=== PATIENT | female | born 1950 | race Caucasian/White ===

== ENCOUNTER 2016-04-14 09:28 | Outpatient (RCR) | payer MEDICARE, MEDICAID ==
[~2016-04-14 09:28] MED LIST: AC325T PO; AC500T PO; ALBU2.5V4 NEB; ALBU8.5H2 IH; ASP325T PO; BACL10TA PO; BECL8.7A5 TOP; BUDE6HFA IH; CARV3.122 PO; CETI10CA PO; CLD600T PO; CYAN100T PO; CYAN25005 PO; DCS100C PO; DESV50TA PO; DICL100G13 TOP; DICL75TA2 PO; DM H PO; DULO60CA6 PO; ENAL10TA PO; FAMO20TA5 PO; FENT1PAT2 TD; FLUO40CA PO; FLUT16SP22 NS; FURO40TA4 PO; GABA600T PO; GBPN300C PO; HC2.5C30 EXT; HYDR-34 PO; HYDR-3816 PO; IBUP800T26 PO; LACT1CAP39 PO; LEVO500P5 IV; LOPE2CAP PO; LORA0.5T PO; LVF500T GT; MAGN27TA4 PO; NAPR220C11 PO; NF-TRA/ACE PO; NYST1POW15 TOP; ONDA-43 PO; ONDA4TAB2 PO; POTA10CA43 PO; Pantoprazole Sodium PO; SERT25TA PO; SIMV5TAB6 PO; Simethicone PO; TAMO20TA2 PO; TIZA2TAB3 PO; TIZA4TAB55 PO; VENL37.563 PO; VENL75CA55 PO; [UNRECOGNIZED DRUG - CODE] PO; [UNRECOGNIZED DRUG - OTHER] IV; prostat PO
--- OUTSIDE RECORDS SUMMARY | 2016-04-14 09:31 | XMS REPORT | Continuity of Care Document ---
Author Author [facility] Organization [facility] Address Unknown Phone Unavailable Care Team Providers Care Provider Scribe Name Role Phone Ari Valera PCP [phone] Source Comments Some departments are not documenting in the electronic medical record. If you do not see the information that you expected, contact Release of Information in the Health Information Management department at [phone] for further assistance in locating additional records.[facility] Active Allergies and Adverse Reactions Allergen Noted Date Severity Reactions Comments Codeine 09/13/2011 HALLUCINATIONS, SEE Pt states gets hostile COMMENTS Pcn 09/13/2011 ANAPHYLAXIS Sulfa (Sulfonamide 09/13/2011 RASH Antibiotics) Current Medications Prescription Sig. Disp. Refills Start End Date Status Date tiZANidine (ZANAFLEX) 4 Take 4 mg by mouth at Active mg tablet bedtime daily. loratadine (CLARITIN) 10 Take 10 mg by mouth Active mg tablet daily. gabapentin (NEURONTIN) Take 300 mg by mouth at Active 300 mg capsule bedtime daily. carvedilol (COREG) 3.125 Take 3.125 mg by mouth Active mg tablet twice daily with meals. famotidine (PEPCID) 20 mg Take 20 mg by mouth twice Active tablet daily. simvastatin (ZOCOR) 5 mg Take 5 mg by mouth daily Active tablet with breakfast. aspirin 325 mg tablet Take 325 mg by mouth Active daily with breakfast. enalapril (VASOTEC) 10 mg Take 10 mg by mouth daily Active tablet with breakfast. furosemide (LASIX) 40 mg Take 40 mg by mouth Active tablet daily. potassium chloride SR Take 10 mEq by mouth Active (K-DUR) 10 mEq tablet daily. DULoxetine DR (CYMBALTA) Take 60 mg by mouth Active 60 mg capsule daily. FLUoxetine(+) (PROZAC) 40 Take 40 mg by mouth Active mg capsule daily. fentaNYL (DURAGESIC) 25 Apply 1 Patch to top of Active mcg/hr patch skin as directed every 72 hours. polyethylene glycol 3350 Take 17 g by mouth every Active (GLYCOLAX; MIRALAX) 17 48 hours. gram/dose powder ibuprofen (MOTRIN) 200 mg Take 600 mg by mouth Active tablet every 8 hours as needed. ondansetron (ZOFRAN) 4 mg Take 4 mg by mouth every Active tablet 4 hours as needed. oxyCODONE-acetaminophen Take 1-2 Tabs by mouth 30 Tab 0 10/18/19 Active (PERCOCET; ENDOCET; every 4 hours as needed 12 ROXICET) 5-325 mg tablet for Pain. Max 12 tabs/day diclofenac sodium DR Take 75 mg by mouth Active (VOLTAREN) 75 mg tablet daily. BISACODYL (DULCOLAX PO) Take by mouth. Active Active Problems Problem Noted Date Recurrent ventral hernia with incarceration 11/08/2011 C. 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
[2016-04-14 09:51] LABS: BASOPHILS % (AUTO) 0 % (0-10); EOSINOPHILS # (AUTO) 0.3 10^3/uL (0.0-0.3); EOSINOPHILS % (AUTO) 4 % (0-10); LYMPHOCYTES # (AUTO) 2.5 X 10^3 (1.0-4.0); LYMPHOCYTES % (AUTO) 38 % (12-44); MEAN CORPUSCULAR HEMOGLOBIN 29 PG (25-34); MEAN CORPUSCULAR HGB CONC 32 G/DL (32-36); MEAN CORPUSCULAR VOLUME 90 FL (80-99); MEAN PLATELET VOLUME 11.1 FL (7.4-10.4); MONOCYTES # (AUTO) 0.6 X 10^3 (0.0-1.0); MONOCYTES % (AUTO) 9 % (0-12); NEUTROPHILS # (AUTO) 3.3 X 10^3 (1.8-7.8); NEUTROPHILS % (AUTO) 49 % (42-75); PLATELET COUNT 219 10^3/uL (130-400); RED BLOOD COUNT 4.71 10^6/uL (4.35-5.85); RED CELL DISTRIBUTION WIDTH 14.2 % (10.0-14.5); WHITE BLOOD COUNT 6.7 10^3/uL (4.3-11.0)
[2016-04-14 10:14] LABS: ALANINE AMINOTRANSFERASE 28 U/L (0-55); ANION GAP 10 MMOL/L (5-14); ASPARTATE AMINO TRANSFERASE 30 U/L (5-34); BILIRUBIN,TOTAL 0.7 MG/DL (0.1-1.0); BLOOD UREA NITROGEN 18 MG/DL (7-18); BUN/CREATININE RATIO 20; CALCIUM 9.3 MG/DL (8.5-10.1); CARBON DIOXIDE 24 MMOL/L (21-32); CHLORIDE 107 MMOL/L (98-107); GFR ESTIMATED > 60; GLUCOSE 109 MG/DL (70-105); POTASSIUM 4.4 MMOL/L (3.6-5.0); SODIUM 141 MMOL/L (135-145); TOTAL PROTEIN 6.8 G/DL (6.4-8.2)
[2016-04-14 10:35] LABS: THYROID STIMULATING HORMONE 1.38 UIU/ML (0.35-4.94)
== END 2016-07-13 | disposition home or self-care (01) ==
LOC: ONC 09:28
PROVIDERS: ATTEND Internal Medicine Hematology & Oncology
DX: C50.411 Malignant neoplasm of upper-outer quadrant of right female breast (principal); E66.01 Morbid (severe) obesity due to excess calories; Z68.42 Body mass index [BMI] 45.0-49.9, adult; I10 Essential (primary) hypertension; F32.9 Major depressive disorder, single episode, unspecified; E89.0 Postprocedural hypothyroidism; Z79.899 Other long term (current) drug therapy; Z17.0 Estrogen receptor positive status [ER+]; Z87.891 Personal history of nicotine dependence; Z90.13 Acquired absence of bilateral breasts and nipples; Z90.710 Acquired absence of both cervix and uterus
CPT/HCPCS: 36415; 80053; 84443; 85025; 86300; 99213

== ENCOUNTER → 2016-06-07 | Outpatient (CLI) | payer MEDICARE, MEDICAID ==
--- OUTSIDE RECORDS SUMMARY | 2016-06-07 13:06 | XMS REPORT | Continuity of Care Document ---
Author Author [facility] Organization [facility] Address Unknown Phone Unavailable Care Team Providers Care Stationary Plant Operators Name Role Phone Ari Valera PCP [phone] Source Comments Some departments are not documenting in the electronic medical record. 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
--- NOTE | 2016-06-08 09:05 | ECHOCARDIOGRAPHY REPORT ---
PROCEDURE PHYSICIAN: HARRY HAYDEN DATE OF PROCEDURE: 06/07/2016 TWO DIMENSIONAL ECHOCARDIOGRAM REPORT PRIMARY PHYSICIAN: OTHER PHYSICIAN: REFERRING PHYSICIAN: JUAN F COTA MD ORDERING PHYSICIAN: INDICATION FOR THE PROCEDURE: 1. Coronary artery disease. 2. Hypertension. MEASUREMENTS DERIVED VALUES LV DIAMETER (LAX) NORMALS NORMALS Diastolic 5.4 (3.6-5.2) Eject. Fract. 60% (60%+/-6%) Systolic (2.3-3.9) Diastolic Vol. % Shortening (0.22-0.42) Systolic Vol. Aortic Root IVS THICKNESS Diastolic 1.1 (0.6-1.1) LVPW THICKNESS Diastolic 1.1 (0.6-1.1) LA DIAMETER Systolic 3.4 (2.1-3.7) FINDINGS: 1. Technical quality is good. 2. The left ventricle is normal in size with normal contractility. Systolic function appeared to be normal. Estimated ejection fraction 60%. 3. The left atrium is normal in size. No clot or thrombus were seen within the left atrium. 4. The right atrium and right ventricle are normal in size. No clot or thrombus were seen within the right side. 5. Mitral valve is normal in morphology with mild mitral regurgitation noted by color Doppler flow. No mitral valve prolapse. No mitral valve stenosis. 6. Aortic valve is trileaflet with normal opening and closing pattern. No significant aortic valve stenosis or regurgitation was seen. 7. Tricuspid valve is normal in morphology with mild tricuspid regurgitation noted by color Doppler flow. Doppler across tricuspid valve estimated pulmonary artery pressure of 28+ right atrial pressure. 8. Pulmonic valve is functioning normally. 9. No pericardial effusion. IN CONCLUSION: 1. Normal left ventricular size and systolic function. Estimated ejection fraction 60%. 2. Mild mitral and tricuspid regurgitation. 3. Estimated pulmonary artery pressure of 35 mmHg. Job ID: [id number] Dictated Date: 06/07/2016 16:23:53 Network Applications Specialist Date: 06/08/2016 09:01:24 / nell
== END ==
LOC: CARD 13:03
PROVIDERS: ATTEND Internal Medicine Cardiovascular Disease
DX: I25.10 Atherosclerotic heart disease of native coronary artery without angina pectoris (principal); I10 Essential (primary) hypertension; I61.9 Nontraumatic intracerebral hemorrhage, unspecified; K43.9 Ventral hernia without obstruction or gangrene
CPT/HCPCS: 93306

== ENCOUNTER 2016-10-04 14:01 | Outpatient (RCR) | payer MEDICARE, MEDICAID ==
[2016-10-04 14:25] LABS: BASOPHILS % (AUTO) 0 % (0-10); EOSINOPHILS # (AUTO) 0.3 10^3/uL (0.0-0.3); EOSINOPHILS % (AUTO) 4 % (0-10); LYMPHOCYTES # (AUTO) 2.3 X 10^3 (1.0-4.0); LYMPHOCYTES % (AUTO) 35 % (12-44); MEAN CORPUSCULAR HEMOGLOBIN 29 PG (25-34); MEAN CORPUSCULAR HGB CONC 33 G/DL (32-36); MEAN CORPUSCULAR VOLUME 90 FL (80-99); MEAN PLATELET VOLUME 11.3 FL (7.4-10.4); MONOCYTES # (AUTO) 0.6 X 10^3 (0.0-1.0); MONOCYTES % (AUTO) 9 % (0-12); NEUTROPHILS # (AUTO) 3.4 X 10^3 (1.8-7.8); NEUTROPHILS % (AUTO) 52 % (42-75); PLATELET COUNT 232 10^3/uL (130-400); RED BLOOD COUNT 4.69 10^6/uL (4.35-5.85); WHITE BLOOD COUNT 6.5 10^3/uL (4.3-11.0)
[2016-10-04 14:56] LABS: ALANINE AMINOTRANSFERASE 42 U/L (0-55); ALBUMIN 4.3 GM/DL (3.2-4.5); ANION GAP 11 MMOL/L (5-14); ASPARTATE AMINO TRANSFERASE 41 U/L (5-34); BILIRUBIN,TOTAL 0.8 MG/DL (0.1-1.0); BLOOD UREA NITROGEN 18 MG/DL (7-18); BUN/CREATININE RATIO 20; CALCIUM 9.8 MG/DL (8.5-10.1); CARBON DIOXIDE 22 MMOL/L (21-32); CHLORIDE 109 MMOL/L (98-107); CREATININE SERUM 0.91 MG/DL (0.60-1.30); GFR ESTIMATED > 60; GLUCOSE 118 MG/DL (70-105); POTASSIUM 4.3 MMOL/L (3.6-5.0); SODIUM 142 MMOL/L (135-145); TOTAL PROTEIN 7.7 GM/DL (6.4-8.2)
[2016-10-04 15:30] LABS: THYROID STIMULATING HORMONE 1.37 UIU/ML (0.35-4.94)
== END 2016-12-23 | disposition home or self-care (01) ==
LOC: ONC 14:01
PROVIDERS: ATTEND Internal Medicine Hematology & Oncology
DX: C50.411 Malignant neoplasm of upper-outer quadrant of right female breast (principal); E89.0 Postprocedural hypothyroidism; I10 Essential (primary) hypertension; E66.01 Morbid (severe) obesity due to excess calories; Z68.42 Body mass index [BMI] 45.0-49.9, adult; F32.9 Major depressive disorder, single episode, unspecified; Z79.899 Other long term (current) drug therapy; Z17.0 Estrogen receptor positive status [ER+]; Z87.891 Personal history of nicotine dependence; Z90.13 Acquired absence of bilateral breasts and nipples; Z90.710 Acquired absence of both cervix and uterus
CPT/HCPCS: 36415; 80053; 84443; 85025; 86300; 99213

== ENCOUNTER 2017-01-03 13:35 | Outpatient (RCR) | payer MEDICARE, MEDICAID ==
[2017-01-03 13:50] LABS: BASOPHILS % (AUTO) 0 % (0-10); EOSINOPHILS # (AUTO) 0.3 10^3/uL (0.0-0.3); EOSINOPHILS % (AUTO) 4 % (0-10); HEMATOCRIT 44 % (35-52); HEMOGLOBIN 14.2 G/DL (11.5-16.0); LYMPHOCYTES # (AUTO) 2.7 X 10^3 (1.0-4.0); LYMPHOCYTES % (AUTO) 38 % (12-44); MEAN CORPUSCULAR HEMOGLOBIN 29 PG (25-34); MEAN CORPUSCULAR HGB CONC 32 G/DL (32-36); MEAN CORPUSCULAR VOLUME 90 FL (80-99); MEAN PLATELET VOLUME 11.8 FL (7.4-10.4); MONOCYTES # (AUTO) 0.5 X 10^3 (0.0-1.0); MONOCYTES % (AUTO) 7 % (0-12); NEUTROPHILS # (AUTO) 3.6 X 10^3 (1.8-7.8); NEUTROPHILS % (AUTO) 50 % (42-75); PLATELET COUNT 254 10^3/uL (130-400); RED BLOOD COUNT 4.94 10^6/uL (4.35-5.85); RED CELL DISTRIBUTION WIDTH 14.2 % (10.0-14.5); WHITE BLOOD COUNT 7.1 10^3/uL (4.3-11.0)
[2017-01-03 14:12] LABS: ALBUMIN 4.4 GM/DL (3.2-4.5); BILIRUBIN,TOTAL 0.9 MG/DL (0.1-1.0); CALCIUM 9.8 MG/DL (8.5-10.1); CREATININE SERUM 0.94 MG/DL (0.60-1.30); TOTAL PROTEIN 7.9 GM/DL (6.4-8.2)
== END 2017-04-03 | disposition home or self-care (01) ==
LOC: ONC 13:35
PROVIDERS: ATTEND Internal Medicine Hematology & Oncology
DX: C50.411 Malignant neoplasm of upper-outer quadrant of right female breast (principal); E89.0 Postprocedural hypothyroidism; I10 Essential (primary) hypertension; E66.01 Morbid (severe) obesity due to excess calories; Z68.42 Body mass index [BMI] 45.0-49.9, adult; F32.9 Major depressive disorder, single episode, unspecified; Z79.899 Other long term (current) drug therapy; Z17.0 Estrogen receptor positive status [ER+]; Z87.891 Personal history of nicotine dependence; Z90.13 Acquired absence of bilateral breasts and nipples; Z90.710 Acquired absence of both cervix and uterus
CPT/HCPCS: 36415; 80053; 85025; 99213

== ENCOUNTER 2017-07-04 14:01 | Outpatient (RCR) | payer MEDICARE, MEDICAID ==
[2017-07-04 14:27] LABS: BASOPHILS % (AUTO) 0 % (0-10); EOSINOPHILS # (AUTO) 0.3 10^3/uL (0.0-0.3); EOSINOPHILS % (AUTO) 4 % (0-10); HEMATOCRIT 43 % (35-52); HEMOGLOBIN 13.8 G/DL (11.5-16.0); LYMPHOCYTES # (AUTO) 2.5 X 10^3 (1.0-4.0); LYMPHOCYTES % (AUTO) 38 % (12-44); MEAN CORPUSCULAR HEMOGLOBIN 29 PG (25-34); MEAN CORPUSCULAR HGB CONC 32 G/DL (32-36); MEAN CORPUSCULAR VOLUME 91 FL (80-99); MEAN PLATELET VOLUME 11.8 FL (7.4-10.4); MONOCYTES # (AUTO) 0.5 X 10^3 (0.0-1.0); MONOCYTES % (AUTO) 8 % (0-12); NEUTROPHILS # (AUTO) 3.1 X 10^3 (1.8-7.8); NEUTROPHILS % (AUTO) 49 % (42-75); PLATELET COUNT 236 10^3/uL (130-400); RED BLOOD COUNT 4.69 10^6/uL (4.35-5.85); RED CELL DISTRIBUTION WIDTH 13.6 % (10.0-14.5); WHITE BLOOD COUNT 6.4 10^3/uL (4.3-11.0)
[2017-07-04 15:00] LABS: ALBUMIN 4.4 GM/DL (3.2-4.5); BILIRUBIN,TOTAL 0.8 MG/DL (0.1-1.0); CALCIUM 9.9 MG/DL (8.5-10.1); CREATININE SERUM 1.28 MG/DL (0.60-1.30); POTASSIUM 4.3 MMOL/L (3.6-5.0); TOTAL PROTEIN 7.4 GM/DL (6.4-8.2)
== END 2017-10-02 | disposition home or self-care (01) ==
LOC: ONC 14:01
PROVIDERS: ATTEND Internal Medicine Hematology & Oncology
DX: Z08 Encounter for follow-up examination after completed treatment for malignant neoplasm (principal); Z85.3 Personal history of malignant neoplasm of breast; E66.01 Morbid (severe) obesity due to excess calories; K43.9 Ventral hernia without obstruction or gangrene; Z86.73 Personal history of transient ischemic attack (TIA), and cerebral infarction without residual deficits; R30.0 Dysuria; I10 Essential (primary) hypertension; F32.9 Major depressive disorder, single episode, unspecified; Z87.891 Personal history of nicotine dependence
CPT/HCPCS: 36415; 80053; 85025; 99213

== ENCOUNTER 2019-01-07 10:39 | Outpatient (RCR) | payer MEDICARE, MEDICAID ==
[2019-01-07 10:58] LABS: BASOPHILS % (AUTO) 1 % (0-10); EOSINOPHILS # (AUTO) 0.3 10^3/uL (0.0-0.3); EOSINOPHILS % (AUTO) 4 % (0-10); HEMATOCRIT 41 % (35-52); HEMOGLOBIN 12.9 G/DL (11.5-16.0); LYMPHOCYTES # (AUTO) 1.9 X 10^3 (1.0-4.0); LYMPHOCYTES % (AUTO) 31 % (12-44); MEAN CORPUSCULAR HEMOGLOBIN 29 PG (25-34); MEAN CORPUSCULAR HGB CONC 32 G/DL (32-36); MEAN CORPUSCULAR VOLUME 91 FL (80-99); MEAN PLATELET VOLUME 11.2 FL (7.4-10.4); MONOCYTES # (AUTO) 0.5 X 10^3 (0.0-1.0); MONOCYTES % (AUTO) 8 % (0-12); NEUTROPHILS # (AUTO) 3.3 X 10^3 (1.8-7.8); NEUTROPHILS % (AUTO) 55 % (42-75); PLATELET COUNT 285 10^3/uL (130-400); RED CELL DISTRIBUTION WIDTH 14.4 % (10.0-14.5); WHITE BLOOD COUNT 5.9 10^3/uL (4.3-11.0)
[2019-01-07 11:22] LABS: ALANINE AMINOTRANSFERASE 36 U/L (0-55); ALBUMIN 4.4 GM/DL (3.2-4.5); ALKALINE PHOSPHATASE 116 U/L (40-136); BUN/CREATININE RATIO 21; CALCIUM 9.4 MG/DL (8.5-10.1); CARBON DIOXIDE 26 MMOL/L (21-32); CHLORIDE 106 MMOL/L (98-107); CREATININE SERUM 0.87 MG/DL (0.60-1.30); GFR ESTIMATED > 60; GLUCOSE 112 MG/DL (70-105); POTASSIUM 4.1 MMOL/L (3.6-5.0); SODIUM 142 MMOL/L (135-145); TOTAL PROTEIN 7.2 GM/DL (6.4-8.2)
== END 2019-04-07 | disposition home or self-care (01) ==
LOC: ONC 10:39
PROVIDERS: ATTEND Internal Medicine Hematology & Oncology
DX: Z08 Encounter for follow-up examination after completed treatment for malignant neoplasm (principal); Z85.3 Personal history of malignant neoplasm of breast; E66.01 Morbid (severe) obesity due to excess calories; K43.9 Ventral hernia without obstruction or gangrene; Z86.73 Personal history of transient ischemic attack (TIA), and cerebral infarction without residual deficits; R30.0 Dysuria; I10 Essential (primary) hypertension; F32.9 Major depressive disorder, single episode, unspecified; Z87.891 Personal history of nicotine dependence
CPT/HCPCS: 36415; 80053; 85025; 99213

== ENCOUNTER → 2020-06-14 | Outpatient (CLI) | payer MEDICARE, MEDICAID ==
[2020-06-14 14:56] LABS: ALBUMIN 4.4 GM/DL (3.2-4.5); BILIRUBIN,TOTAL 1.3 MG/DL (0.1-1.0); CALCIUM 9.4 MG/DL (8.5-10.1); CREATININE SERUM 0.98 MG/DL (0.60-1.30); POTASSIUM 4.6 MMOL/L (3.6-5.0); TOTAL PROTEIN 7.5 GM/DL (6.4-8.2)
[2020-06-14 15:02] LABS: BASOPHILS # (AUTO) 0.1 10^3/uL (0.0-0.1); BASOPHILS % (AUTO) 1 % (0-10); EOSINOPHILS # (AUTO) 0.2 10^3/uL (0.0-0.3); EOSINOPHILS % (AUTO) 2 % (0-10); HEMATOCRIT 46 % (35-52); HEMOGLOBIN 14.9 g/dL (11.5-16.0); LYMPHOCYTES # (AUTO) 2.9 10^3/uL (1.0-4.0); LYMPHOCYTES % (AUTO) 36 % (12-44); MEAN CORPUSCULAR HEMOGLOBIN 29 pg (25-34); MEAN CORPUSCULAR HGB CONC 32 g/dL (32-36); MEAN CORPUSCULAR VOLUME 90 fL (80-99); MEAN PLATELET VOLUME 11.7 fL (9.0-12.2); MONOCYTES # (AUTO) 0.6 10^3/uL (0.0-1.0); MONOCYTES % (AUTO) 7 % (0-12); NEUTROPHILS # (AUTO) 4.5 10^3/uL (1.8-7.8); NEUTROPHILS % (AUTO) 54 % (42-75); PLATELET COUNT 295 10^3/uL (130-400); WHITE BLOOD COUNT 8.2 10^3/uL (4.3-11.0)
== END ==
LOC: EDSTATUS 04-08 15:16 → ONC 14:13
PROVIDERS: ATTEND Internal Medicine Hematology & Oncology
DX: C50.412 Malignant neoplasm of upper-outer quadrant of left female breast (principal); E66.01 Morbid (severe) obesity due to excess calories; K43.9 Ventral hernia without obstruction or gangrene; F32.9 Major depressive disorder, single episode, unspecified; I10 Essential (primary) hypertension; E78.2 Mixed hyperlipidemia; I25.10 Atherosclerotic heart disease of native coronary artery without angina pectoris; R30.0 Dysuria; Z90.13 Acquired absence of bilateral breasts and nipples; Z86.73 Personal history of transient ischemic attack (TIA), and cerebral infarction without residual deficits; Z90.710 Acquired absence of both cervix and uterus; Z90.89 Acquired absence of other organs; Z78.0 Asymptomatic menopausal state
CPT/HCPCS: 80053; 85025; 99213

== ENCOUNTER 2021-09-07 05:32 | Outpatient (CLI) | payer MEDICARE, MEDICAID ==
[~2021-09-07] VITALS: Ht 170.2 cm; Wt 123.4 kg
== END 2021-09-07 08:56 | disposition home or self-care (01) ==
LOC: PREOP 05:32
PROVIDERS: ATTEND Surgery
DX: Z01.818 Encounter for other preprocedural examination (principal)

== ENCOUNTER 2021-09-14 09:03 | Day surgery (SDC) | payer MEDICARE, MEDICAID ==
[~2021-09-14] VITALS: Ht 170 cm; Wt 123.4 kg
[2021-09-14] MEDS ORDERED: LACTATED RINGERS 1,000 ML IV STA (09:17)
[2021-09-14 09:20] VITALS: BP 183/115
[2021-09-14] MEDS ORDERED: LIDOCAINE JELLY 2% 6 ML SYRINGE MM PRN (09:30)
[2021-09-14] MEDS ORDERED: GEMF600T88 PO (09:52)
[2021-09-14] MEDS ORDERED: TRZ50T PO (09:52)
[2021-09-14] MEDS ORDERED: LURA40TA2 PO (09:52)
[2021-09-14] MEDS ORDERED: LOPE-134 PO (09:52)
[2021-09-14] MEDS ORDERED: FURO40TA4 PO (09:52)
[2021-09-14] MEDS ORDERED: HYPR15DR6 OP (09:52)
[2021-09-14] MEDS ORDERED: TIZA2CAP9 PO (09:52)
[2021-09-14] MEDS ORDERED: OXYB10TA29 PO (09:52)
[2021-09-14] MEDS ORDERED: NF-ALLE180 PO (09:52)
[2021-09-14] MEDS ORDERED: LAMO100T5 PO (09:52)
[2021-09-14] MEDS ORDERED: MELO15TA39 PO (09:52)
[2021-09-14] MEDS ORDERED: CETI10TA17 PO (09:52)
[2021-09-14] MEDS ORDERED: HYDR-700 PO (09:52)
[2021-09-14] MEDS ORDERED: SENN-234 PO (09:52)
[2021-09-14] MEDS ORDERED: BACL10TA PO ×2 (09:52)
[2021-09-14] MEDS ORDERED: FENT1PAT8 TD (09:52)
[2021-09-14] MEDS ORDERED: LORA-404 SL (09:52)
[2021-09-14] MEDS ORDERED: LISI5TAB20 PO (09:52)
[2021-09-14] MEDS ORDERED: BACI1CAP6 PO (09:52)
[2021-09-14] MEDS ORDERED: DOCU-143 PO (09:52)
[2021-09-14] MEDS ORDERED: FLUT9.9S NS (09:52)
[2021-09-14] MEDS ORDERED: HYDR-3820 PO (09:52)
[2021-09-14] MEDS ORDERED: POTA10TA37 PO (09:52)
[2021-09-14] MEDS ORDERED: ONDA8TAB13 PO (09:52)
[2021-09-14] MEDS ORDERED: GBPN600T PO (09:52)
[2021-09-14] MEDS ORDERED: VILA40TA PO (09:52)
[2021-09-14] MEDS ORDERED: MV-M1TAB20 PO (09:52)
[2021-09-14] MEDS ORDERED: OMG1KC PO (09:52)
[2021-09-14] MEDS ORDERED: PROPOFOL INJECTION 50 ML IV ONE ×2 (10:12→10:35)
--- NOTE | 2021-09-14 10:22 | Progress Note-Pre Operative ---
Pre-Operative Progress Note H&P Reviewed The H&P was reviewed, patient examined and no changes noted. Date Seen by Provider: Sep 14, 2021 Time Seen by Provider: : Date H&P Reviewed: Sep 14, 2021 Time H&P Reviewed: :30 Pre-Operative Diagnosis: screening AIDEN Meneses MD Sep 14, 2021 10:21
--- NOTE | 2021-09-14 10:23 | Discharge Inst-Surgical ---
D/C Lap Instructions-VANE Follow Up Activity as tolerated High Fiber Diet 25g or more per day Avoid Alcohol, Caffeine, Spicy [place] and Acid foods. Drink 64 fluid oz or more of fluids per day. Symptoms to Report: Fever over 101 degree F, Nausea/Vomiting If any problems/questions: Contact your physician or go to Emergency Room AIDEN CIFUENTES MD Sep 14, 2021 10:23
[2021-09-14] MEDS ORDERED: ONDANSETRON 4 MG/2 ML (SDV) Z0FRAN IVP PRN (10:30)
[2021-09-14] MEDS ORDERED: ONDANSETRON 4 MG (ZOFRAN) ORAL DISSOLVE TAB PO PRN (10:30)
[2021-09-14 10:50] VITALS: BP 149/81
[2021-09-14 10:55] VITALS: BP 128/59
--- NOTE | 2021-09-14 10:56 | Progress Note-Post Operative ---
Post-Operative Progess Note Surgeon (s)/Scissors Grinder (s) Surgeon AIDEN CIFUENTES MD Scissors Grinder: none Pre-Operative Diagnosis screening colo Post-Operative Diagnosis mild sigmoid diverticulosis. Procedure & Operative Findings Date of Procedure 09/14/21 Procedure Performed/Findings colonscopy Anesthesia Type mac Estimated Blood Loss Estimated blood loss (mL): minimal Specimens/Packing Specimens Removed none AIDEN CIFUENTES MD Sep 14, 2021 10:56
[2021-09-14 11:20] VITALS: BP 142/95
[2021-09-14 11:27] VITALS: BP 142/95
--- NOTE | 2021-09-14 14:18 | Anesthesia-General Post-Op ---
MAC Patient Condition Mental Status/LOC: Same as Preop Cardiovascular: Satisfactory Nausea/Vomiting: Absent Respiratory: Satisfactory Pain: Controlled Complications: Absent Post Op Complications Complications None Follow Up Care/Instructions Patient Instructions None needed. Anesthesiology Discharge Order Discharge Order Patient is doing well, no complaints, stable vital signs, no apparent adverse anesthesia problems. No complications reported per nursing. JOSIE FRANCO CRNA Sep 14, 2021 14:18
--- NOTE | 2021-09-14 20:38 | OPERATIVE REPORT ---
DATE OF SERVICE: 09/14/2021 ATTENDING PRIMARY CARE PHYSICIAN: Dr. Loly Maloney. PREOPERATIVE DIAGNOSIS: Screening colonoscopy. POSTOPERATIVE DIAGNOSIS: Mild sigmoid diverticulosis. PROCEDURE: Colonoscopy. SURGEON: Aiden Estrada MD. ANESTHESIA: Monitored anesthesia care. ESTIMATED BLOOD LOSS: Minimal. FINDINGS: Mild sigmoid diverticulosis. DISPOSITION: The patient tolerated the procedure well. INDICATIONS: The patient is a 71-year-old female in need of a screening colonoscopy. Her last colonoscopy was approximately 10 years ago and she believes this to be normal. She states no major issues with diarrhea nor constipation as well as no red blood per rectum nor any dark tarry stools. She also does not report any family history of colon cancer. DESCRIPTION OF PROCEDURE: The patient was brought to the endoscopy suite, laid in the left lateral decubitus position. After adequate IV pain and sedative medications and monitored anesthesia care, a digital rectal examination was performed. No significant hemorrhoids identified. Normal sphincter tone was felt and there were no palpable masses. The endoscope was then intubated into the anus and rectum gently insufflated. The endoscope was then advanced through the valves of Bird of the rectum with no polyps or any neoplasms identified. Through the sigmoid colon, a mild sigmoid diverticulosis identified. The endoscope was then advanced to the remainder of the descending, transverse and ascending colon to the cecum, which were normal. There were no polyps or any neoplasms identified throughout the colon or rectum. Endoscope was then slowly withdrawn while taking a second look and suctioning of residual air with no additional findings. The patient tolerated the procedure well. We will recommend continued medical management with a high-fiber diet with a fiber supplement, which should equal or exceed 25 grams daily as well as significant amounts of water to promote soft stools on a daily basis. If she is asymptomatic, she does not need another colonoscopy for another 10 years. Job ID: [id number] DocumentID: [id number] Dictated Date: 09/14/2021 10:52:42 Paradichlorobenzene Tender Date: 09/14/2021 20:37:26 Dictated By: AIDEN ESTRADA MD
== END 2021-09-14 11:27 | disposition home or self-care (01) ==
LOC: ENDO 09:03
PROVIDERS: ATTEND Surgery
DX: Z12.11 Encounter for screening for malignant neoplasm of colon (principal); K57.30 Diverticulosis of large intestine without perforation or abscess without bleeding; Z88.0 Allergy status to penicillin; Z88.2 Allergy status to sulfonamides; Z88.5 Allergy status to narcotic agent; Z88.1 Allergy status to other antibiotic agents; Z86.010 Personal history of colon polyps; Z85.3 Personal history of malignant neoplasm of breast; Z87.891 Personal history of nicotine dependence
CPT/HCPCS: 93005